=== PATIENT | male | born 1965 | race Caucasian/White ===

== ENCOUNTER → 2016-11-23 | Outpatient (CLI) | payer BC | LOC: ZCOL.LAB 08:00 | DX: Q64.33 Congenital stricture of urinary meatus (principal) ==

== ENCOUNTER 2017-05-08 11:26 | Emergency (ER) | payer BC ==
[~2017-05-08] VITALS: Ht 198.1 cm; Wt 88.6 kg
[2017-05-08 11:27] VITALS: BP 124/78; TEMP 97.6
[2017-05-08 12:30] LABS: COLLECTION METHOD CLEAN CATCH
[2017-05-08 12:33] LABS: BASO % 0.7 % (0.0-2.0); EOS # 0.2 (0.0-0.7); EOS % 2.7 % (0-4.0); GRAN # 3.5 (1.4-6.5); GRAN % 61.2 % (42.2-75.2); HEMATOCRIT 49.1 % (42.0-52.0); HEMOGLOBIN 16.9 g/dl (13.5-18.0); LYMPH # 1.6 (1.2-3.4); LYMPH % 28.8 % (20.0-51.0); MEAN CELL VOLUME 90 fl (80.0-100.0); MEAN CORPUSCULAR HEMOGLOBIN 31 pg (27.0-31.0); MEAN CORPUSCULAR HGB CONC 34 g/dl (33.0-37.0); MEAN PLATELET VOLUME 10.5 fl (7.4-10.4); MONO # 0.4 (0.1-0.6); MONO % 6.4 % (1.7-9.3); PLATELET COUNT 229 K/mm3 (130-400); RED BLOOD COUNT 5.43 M/mm3 (4.20-5.60); REDCELL DISTRIBUTION WIDTH-CV 13.5 % (11.5-14.5)
[2017-05-08 12:38] LABS: MUCOUS Present /lpf; PH 5 (5-8); SQUAMOUS EPITHELIAL 0-2 /hpf; URINE APPEARANCE Clear; URINE BACTERIA None Seen /hpf; URINE BILIRUBIN Negative (NEGATIVE); URINE BLOOD 2+ (NEGATIVE); URINE COLOR Yellow; URINE GLUCOSE Negative (NEGATIVE); URINE KETONE Trace (NEGATIVE); URINE LEUKOCYTE ESTERASE Negative (NEGATIVE); URINE NITRATE Negative (NEGATIVE); URINE PROTEIN(semi-quant) Negative (NEGATIVE); URINE UROBILINOGEN Negative (NEGATIVE)
[2017-05-08 12:44] LABS: ALANINE AMINOTRANSFERASE 24 U/L (21-72); ALBUMIN 4.4 gm/dL (3.5-5.0); ALKALINE PHOSPHATASE 45 U/L (50-136); ANION GAP 8 mmol/L (7-16); AST,SGOT 17 U/L (15-37); BILIRUBIN,TOTAL 1.2 mg/dL (0.0-1.0); BLOOD UREA NITROGEN 17 mg/dL (9-20); CALCIUM 9.4 mg/dL (8.4-10.2); CARBON DIOXIDE 27 mmol/L (22-30); CHLORIDE 105 mmol/L (98-107); CREATININE, serum 0.96 mg/dL (0.66-1.25); GLUCOSE 77 mg/dL (74-106); POTASSIUM 4.2 mmol/L (3.4-5.0); SODIUM 140 mmol/L (137-145); TOTAL PROTEIN 7.3 gm/dL (6.4-8.2)
[2017-05-08 12:55] LABS: TROPONIN-I < 0.012 ng/mL (0.000-0.034)
[2017-05-08] MEDS ORDERED: NORCO 325 MG-7.1 TAB PO (13:53)
[2017-05-08 14:13] VITALS: PULSE 57
== END 2017-05-08 14:10 | disposition home or self-care (01) ==
LOC: COL.ER 11:26
PROVIDERS: Nurse Practitioner
DX: M54.6 Pain in thoracic spine (principal); I10 Essential (primary) hypertension; E78.5 Hyperlipidemia, unspecified; F17.210 Nicotine dependence, cigarettes, uncomplicated
CPT/HCPCS: J1170

== ENCOUNTER 2019-04-26 17:36 | Emergency (ER) | payer SELFPAY ==
[~2019-04-26] VITALS: Ht 198.1 cm; Wt 99.1 kg
[~2019-04-26 17:36] MED LIST: NORCO 325 MG-7.1 TAB PO
[2019-04-26 17:53] VITALS: BP 145/89; TEMP 98.5
[2019-04-26] MEDS ORDERED: VOLTAREN 75 DR75 MG PO (20:03)
[2019-04-26 20:17] VITALS: PULSE 83
== END 2019-04-26 20:17 | disposition home or self-care (01) ==
LOC: COL.ER 17:36
DX: M72.2 Plantar fascial fibromatosis (principal)

== ENCOUNTER 2021-04-27 14:56 | Emergency (ER) | payer BC ==
[~2021-04-27] VITALS: Ht 198.1 cm; Wt 93.2 kg
[~2021-04-27 14:56] MED LIST changes: +VOLTAREN 75 DR75 MG PO
[2021-04-27 16:34] VITALS: TEMP 97.7
[2021-04-27] MEDS ORDERED: 00186-0372-20 IH (18:37)
[2021-04-27 20:13] VITALS: BP 141/97; PULSE 69
== END 2021-04-27 20:14 | disposition home or self-care (01) ==
LOC: COL.ER 14:56
DX: U07.1 COVID-19 (principal); J44.9 Chronic obstructive pulmonary disease, unspecified; F17.210 Nicotine dependence, cigarettes, uncomplicated; Z79.51 Long term (current) use of inhaled steroids
CPT/HCPCS: M0243; Q0244

== ENCOUNTER 2021-05-26 11:52 | Emergency (ER) | payer BC ==
[~2021-05-26] VITALS: Ht 198.1 cm; Wt 90.9 kg
[~2021-05-26 11:52] MED LIST changes: +00186-0372-20 IH
[2021-05-26 11:59] VITALS: TEMP 98.3
[2021-05-26 12:25] LABS: BASO % 0.5 % (0.0-2.0); EOS # 0.2 K/mm3 (0.0-0.7); GRAN # 5.3 K/mm3 (1.4-6.5); GRAN % 70.4 % (42.2-75.2); HEMATOCRIT 50.2 % (42.0-52.0); HEMOGLOBIN 17.6 g/dl (13.5-18.0); LYMPH # 1.6 K/mm3 (1.2-3.4); LYMPH % 20.8 % (20.0-51.0); MEAN CELL VOLUME 88 fl (80.0-100.0); MEAN CORPUSCULAR HEMOGLOBIN 31 pg (27-31); MEAN CORPUSCULAR HGB CONC 35 g/dl (33.0-37.0); MEAN PLATELET VOLUME 10.3 fl (7.4-10.4); MONO # 0.4 K/mm3 (0.1-0.6); MONO % 5.9 % (1.7-9.3); PLATELET COUNT 234 K/mm3 (130-400); RED BLOOD COUNT 5.68 M/mm3 (4.20-5.60); REDCELL DISTRIBUTION WIDTH-CV 13.4 % (11.5-14.5)
[2021-05-26 12:33] LABS: PROTHROMBIN TIME 11.6 SECONDS (9.7-12.8)
[2021-05-26 12:45] LABS: ALANINE AMINOTRANSFERASE 17 U/L (0-55); ALBUMIN 4.2 gm/dL (3.5-5.0); ALKALINE PHOSPHATASE 65 U/L (40-150); ANION GAP 8 mmol/L (7-16); AST,SGOT 14 U/L (5-34); BILIRUBIN,TOTAL 0.7 mg/dL (0.2-1.2); BLOOD UREA NITROGEN 14 mg/dL (8-26); CALCIUM 9.2 mg/dL (8.4-10.2); CARBON DIOXIDE 24 mmol/L (22-29); CHLORIDE 109 mmol/L (98-107); CREATININE, serum 0.92 mg/dL (0.72-1.25); GLUCOSE 96 mg/dL (70-99); POTASSIUM 3.8 mmol/L (3.5-4.5); SODIUM 141 mmol/L (136-145); TOTAL PROTEIN 7.7 gm/dL (6.2-8.1)
[2021-05-26 12:52] LABS: TROPONIN-I < 0.010 ng/mL (0.00-0.033)
[2021-05-26 15:05] VITALS: BP 142/89; PULSE 69
== END 2021-05-26 15:05 | disposition home or self-care (01) ==
LOC: COL.ER 11:52
PROVIDERS: Student in an Organized Health Care Education/Training Program
DX: R53.1 Weakness (principal); I10 Essential (primary) hypertension; J44.9 Chronic obstructive pulmonary disease, unspecified; F17.200 Nicotine dependence, unspecified, uncomplicated; Z20.822 Contact with and (suspected) exposure to COVID-19
CPT/HCPCS: J7030; Q9967

== ENCOUNTER 2021-08-29 11:10 | Emergency (ER) | payer SELFPAY ==
[~2021-08-29] VITALS: Ht 193 cm; Wt 93.2 kg
[2021-08-29 11:12] VITALS: TEMP 98.8
[2021-08-29] MEDS ORDERED: NORCO 325 MG-51 TAB PO (12:05)
[2021-08-29] MEDS ORDERED: FLEXERIL 1010 MG/TAB PO (12:24)
[2021-08-29] MEDS ORDERED: MEDROL 4MG DOSPA4 MG PO (12:25)
[2021-08-29] MEDS ORDERED: PERCOCET 325 MG1 TA2 PO (12:40)
[2021-08-29 13:40] VITALS: BP 147/98; PULSE 65
== END 2021-08-29 13:41 | disposition home or self-care (01) ==
LOC: COL.ER 11:10
DX: M54.42 Lumbago with sciatica, left side (principal); Z28.310 Unvaccinated for COVID-19; X50.0XXA Overexertion from strenuous movement or load, initial encounter
CPT/HCPCS: J1885; J2270; J2360

== ENCOUNTER → 2021-09-03 | Outpatient (CLI) | payer SELFPAY ==
[~2021-09-03] MED LIST changes: +FLEXERIL 1010 MG/TAB PO; +MEDROL 4MG DOSPA4 MG PO; +NORCO 325 MG-51 TAB PO; +PERCOCET 325 MG1 TA2 PO
== END ==
LOC: COL.RAD 11:56
DX: M51.26 Other intervertebral disc displacement, lumbar region (principal); G95.20 Unspecified cord compression

== ENCOUNTER 2022-02-11 15:45 | Outpatient (RCR) | payer OTHER | END 2022-02-23 | disposition home or self-care (01) | LOC: WSPT | DX: M54.16 Radiculopathy, lumbar region (principal) ==

== ENCOUNTER 2023-08-31 09:07 | Emergency (ER) | payer OTHER ==
[~2023-08-31] VITALS: Ht 198.1 cm; Wt 104.5 kg
[~2023-08-31 09:07] MED LIST changes: +ALBUTEROL0.83 MG/ML IH; +PREDNISONE20 MG PO
[2023-08-31 09:13] VITALS: TEMP 98.5
[2023-08-31] MEDS ORDERED: TRELEGY ELLIPT1 EAC1 IH (09:18)
[2023-08-31 10:37] VITALS: BP 148/100; PULSE 74
== END 2023-08-31 11:22 | disposition home or self-care (01) ==
LOC: COL.ER 09:07
DX: S46.811A Strain of other muscles, fascia and tendons at shoulder and upper arm level, right arm, initial encounter (principal); X58.XXXA Exposure to other specified factors, initial encounter

== ENCOUNTER → 2023-09-24 | Outpatient (RCR) | payer OTHER ==
[~2023-09-24] MED LIST changes: +ASPIRIN 81M81 MG/TA2 PO; +BUSPIRONE HCL7.5 MG PO; +CIALIS10 MG PO; +LIPITOR 80MG80 MG PO; +LYRICA 50MG CAP50 MG PO; +PLAVIX 75MG TAB75 MG PO; +PRILOSEC 20MG20 MG PO; +PROAIR HFA0.09 MG/AC IH; +TRELEGY ELLIPT1 EAC1 IH; +TYLENOL 500MG500 MG PO
== END ==
LOC: WSPT
DX: M54.41 Lumbago with sciatica, right side (principal); M54.42 Lumbago with sciatica, left side; M22.2X1 Patellofemoral disorders, right knee; G89.29 Other chronic pain

== ENCOUNTER 2023-12-10 10:08 | Emergency (ER) | payer OTHER ==
[~2023-12-10] VITALS: Ht 198.1 cm; Wt 95.5 kg
[~2023-12-10 10:08] MED LIST changes: -ASPIRIN 81M81 MG/TA2 PO; -BUSPIRONE HCL7.5 MG PO; -CIALIS10 MG PO; -LIPITOR 80MG80 MG PO; -LYRICA 50MG CAP50 MG PO; -PLAVIX 75MG TAB75 MG PO; -PRILOSEC 20MG20 MG PO; -PROAIR HFA0.09 MG/AC IH; -TYLENOL 500MG500 MG PO
[2023-12-10 10:11] VITALS: TEMP 99
[2023-12-10 10:48] LABS: BASO % 0.5 % (0.0-2.0); EOS # 0.1 K/mm3 (0.0-0.7); EOS % 0.8 % (0.0-4.0); GRAN # 5.8 K/mm3 (1.4-6.5); GRAN % 70.4 % (42.2-75.2); HEMATOCRIT 46.3 % (42.0-52.0); HEMOGLOBIN 15.7 g/dl (13.5-18.0); LYMPH # 1.9 K/mm3 (1.2-3.4); LYMPH % 22.8 % (20.0-51.0); MEAN CELL VOLUME 90 fl (80.0-100.0); MEAN CORPUSCULAR HEMOGLOBIN 31 pg (27-31); MEAN CORPUSCULAR HGB CONC 34 g/dl (33.0-37.0); MEAN PLATELET VOLUME 11.2 fl (7.4-10.4); MONO # 0.4 K/mm3 (0.1-0.6); MONO % 5.3 % (1.7-9.3); PLATELET COUNT 231 K/mm3 (130-400); RED BLOOD COUNT 5.12 M/mm3 (4.20-5.60); REDCELL DISTRIBUTION WIDTH-CV 13.8 % (11.5-14.5)
[2023-12-10 11:09] LABS: ALBUMIN 3.7 g/dL (3.5-5.0); BILIRUBIN,TOTAL 0.5 mg/dL (0.2-1.2); CALCIUM 8.8 mg/dL (8.4-10.2); CREATININE, serum 0.89 mg/dL (0.72-1.25); POTASSIUM 3.4 mEq/L (3.5-4.5); TOTAL PROTEIN 6.5 g/dl (6.2-8.1)
[2023-12-10 12:22] VITALS: BP 137/95; PULSE 73
== END 2023-12-10 12:22 | disposition home or self-care (01) ==
LOC: COL.ER 10:08
PROVIDERS: Personal Emergency Response Attendant
DX: R55 Syncope and collapse (principal); R20.2 Paresthesia of skin; M54.50 Low back pain, unspecified

== ENCOUNTER 2023-12-10 20:08 | Emergency (ER) | payer OTHER ==
[~2023-12-10] VITALS: Ht 188 cm; Wt 86.4 kg
[2023-12-10 20:14] VITALS: TEMP 99
[2023-12-10 20:30] LABS: BASO % 0.3 % (0.0-2.0); EOS % 0.1 % (0.0-4.0); GRAN # 7.5 K/mm3 (1.4-6.5); GRAN % 77.8 % (42.2-75.2); HEMATOCRIT 46.9 % (42.0-52.0); HEMOGLOBIN 16.4 g/dl (13.5-18.0); LYMPH # 1.6 K/mm3 (1.2-3.4); LYMPH % 16.9 % (20.0-51.0); MEAN CELL VOLUME 88 fl (80.0-100.0); MEAN CORPUSCULAR HEMOGLOBIN 31 pg (27-31); MEAN CORPUSCULAR HGB CONC 35 g/dl (33.0-37.0); MONO # 0.4 K/mm3 (0.1-0.6); MONO % 4.6 % (1.7-9.3); PLATELET COUNT 242 K/mm3 (130-400); RED BLOOD COUNT 5.31 M/mm3 (4.20-5.60); REDCELL DISTRIBUTION WIDTH-CV 13.7 % (11.5-14.5)
[2023-12-10 20:38] LABS: INR 1.1 (0.8-3.0); PROTHROMBIN TIME 11.5 SECONDS (9.7-12.8)
[2023-12-10 20:41] LABS: PARTIAL THROMBOPLASTIN TIME 28.2 SECONDS (26.0-37.0)
[2023-12-10 20:48] LABS: ALANINE AMINOTRANSFERASE 31 U/L (0-55); ALBUMIN 3.8 g/dL (3.5-5.0); ALKALINE PHOSPHATASE 76 U/L (40-150); ANION GAP 11 mmol/L (7-16); AST,SGOT 20 U/L (5-34); BILIRUBIN,TOTAL 0.5 mg/dL (0.2-1.2); BLOOD UREA NITROGEN 16 mg/dL (8-26); C-REACTIVE PROTEIN 0.02 mg/dL (0.00-0.50); CALCIUM 9.2 mg/dL (8.4-10.2); CHLORIDE 106 mEq/L (98-107); CREATINE KINASE 55 U/L (30-200); CREATININE, serum 1.03 mg/dL (0.72-1.25); GLUCOSE 206 mg/dL (70-99); MAGNESIUM 2.1 mg/dL (1.6-2.6); POTASSIUM 4.3 mEq/L (3.5-4.5); SODIUM 138 mEq/L (136-145); TOTAL PROTEIN 7.2 g/dl (6.2-8.1)
[2023-12-10 20:58] LABS: ALCOHOL(ethanol),MEDICAL < 10 mg/dL (0-10); SALICYLATE < 5.0 mg/dL (15.0-30.0)
[2023-12-10 21:13] LABS: THYROID STIMULATING HORMONE 0.391 uIU/mL (0.350-4.940)
[2023-12-10 21:16] LABS: TROPONIN-I < 0.010 ng/mL (0.00-0.033)
[2023-12-10 22:54] LABS: COLLECTION METHOD CLEAN CATCH
[2023-12-10 22:58] LABS: URINE APPEARANCE CLEAR (CLEAR/HAZY); URINE BLOOD NEGATIVE (NEGATIVE); URINE COLOR YELLOW (YELLOW); URINE GLUCOSE 2+ (NEGATIVE); URINE KETONE TRACE (NEGATIVE); URINE NITRATE NEGATIVE (NEGATIVE); URINE PROTEIN(semi-quant) NEGATIVE (NEGATIVE); URINE UROBILINOGEN 0.2 E.U/dL (0.2-1.0)
[2023-12-10 23:08] LABS: TRICYCLIC ANTIDEPRESS URINE NEGATIVE (NEGATIVE)
[2023-12-11 04:15] VITALS: BP 164/104; PULSE 61
== END 2023-12-11 04:24 | disposition short-term general hospital (02) ==
LOC: COL.ER 20:08
PROVIDERS: Emergency Medicine
DX: R41.82 Altered mental status, unspecified (principal); M51.36 Other intervertebral disc degeneration, lumbar region

== ENCOUNTER 2023-12-15 13:45 | Inpatient (IN) | payer OTHER ==
[~2023-12-15] VITALS: Ht 193 cm; Wt 102.3 kg
[2023-12-15] MEDS ORDERED: LIPITOR 80MG80 MG PO (14:56)
[2023-12-15] MEDS ORDERED: ASPIRIN 81M81 MG/TA2 PO (14:56)
[2023-12-15] MEDS ORDERED: PLAVIX 75MG TAB75 MG PO (14:57)
[2023-12-15] MEDS ORDERED: TYLENOL 500MG500 MG PO (14:58)
[2023-12-15] MEDS ORDERED: PRILOSEC 20MG20 MG PO (14:59)
[2023-12-15] MEDS ORDERED: BUSPIRONE HCL7.5 MG PO (14:59)
[2023-12-15] MEDS ORDERED: LYRICA 50MG CAP50 MG PO (15:00)
[2023-12-15] MEDS ORDERED: CIALIS10 MG PO (15:00)
[2023-12-15] MEDS ORDERED: PROAIR HFA0.09 MG/AC IH (15:03)
[2023-12-15] MEDS ORDERED: ALBUTEROL0.83 MG/ML IH (15:03)
[2023-12-15 15:13] VITALS: BP 149/91; PULSE 80; TEMP 98.3
[2023-12-15] MEDS ORDERED: Acetaminophen 325 MG TAB PO PRN (15:15)
[2023-12-15] MEDS ORDERED: Sennosides/Docusate 8.6-50 MG TAB PO PRN (15:15)
[2023-12-15] MEDS ORDERED: Naloxone 0.4 MG/ML VIAL IV PRN (15:15)
[2023-12-15] MEDS ORDERED: Polyethylene Glycol 3350 17 GM PDS PO PRN (15:15)
[2023-12-15] MEDS ORDERED: Docusate Sodium 100 MG CAP PO PRN (15:15)
[2023-12-15] MEDS ORDERED: Albuterol 0.083% Neb Soln 2.5 MG/3 ML UD IH PRN (15:15)
[2023-12-15] MEDS ORDERED: Nicotine 21 MG DAILY PATCH TD SCH (15:30)
[2023-12-15 18:53] VITALS: BP 117/72; PULSE 74; TEMP 98.3
[2023-12-15 19:00] VITALS: BP_SYST 112
--- NOTE | 2023-12-15 19:00 | NUR ---
RECEIVED CHANGE OF SHIFT REPORT FROM DAY SHIFT NURSE.
--- NOTE | 2023-12-15 20:00 | NUR ---
DENIES CHEST PAIN/SHORTNESS OF BREATH/NAUSEA AT THIS TIME. UP WITH ASST X1 WITH GAIT BELT, GAIT STEADY. DENIES NUMBNESS/TINGLING TO EXTREMITIES. OBSERVED SOME WEAKNESS OF RUE WITH HAND TOY MECHANIC AND SOME RLE WEAKNESS WITH WALKING. NO SLURRED SPEECH OBSERVED AND FOLLOWS COMMANDS FROM STAFF. DENIES ANY NEEDS AT THIS TIME.
[2023-12-16 05:13] VITALS: BP 112/73; PULSE 71; TEMP 97.7
--- NOTE | 2023-12-16 06:21 | NUR ---
PATIENT REPORTS DID NOT SLEEP WELL LAST NIGHT, REPORTING THAT HE WAS NOT ABLE TO STAY ASLEEP DURING THE NIGHT. COMPLAINED OF RIGHT ARM PAIN THAT SUBSIDED WITH TYLENOL WITH NO ADDITIONAL COMPLAINTS OF DISCOMFORT REPORTED DURING THE NIGHT.
[2023-12-16 06:50] VITALS: BP_SYST 112
[2023-12-16] MEDS ORDERED: Omeprazole 20 MG **** subs to Pantoprazole 40 MG PO SCH (07:00)
--- NOTE | 2023-12-16 07:17 | NUR ---
CHANGE OF SHIFT REPORT GIVEN TO DAY SHIFT NURSEREHANA. EXIT ALARMS WHEN UP IN CHAIR OR IN BED. PATIENT DENIES ANY NEEDS OR CONCERNS THIS MORNING PRIOR TO SHIFT CHANGE.
--- NOTE | 2023-12-16 08:00 | NUR ---
Pt doing okay this morning. He states that he did not have a good night. He was not able to get any sleep and was up to the restroom a lot. Pt reports he feels it was something he ate. He also states that his right arm was aching through the night and he kept having to move it for comfort. Pt did eat part of his breakfast, but educated trying a bland diet for today. Discussed pt with Dr Carlos regarding bringing in food from home and the diet he has ordered. Pt stand by assist to the restroom
[2023-12-16] MEDS ORDERED: Clopidogrel 75 MG TAB PO SCH (09:00)
[2023-12-16] MEDS ORDERED: Atorvastatin 80 MG TAB PO SCH (09:00)
[2023-12-16] MEDS ORDERED: busPIRone 7.5 MG TABLET PO SCH (09:00)
[2023-12-16] MEDS ORDERED: Patient's Own Medication Item IH SCH (09:00)
--- NOTE | 2023-12-16 13:00 | NUR ---
Pt doing well, no complaints at this time. Participating with therapy with no issues. Pt hoping to have general diet. Educated on diet this morning and discussed with him and his regarding outside food. Hat placed in toilet for stool specimen next time he goes, informed pt of this. No other needs
--- NOTE | 2023-12-16 15:58 | NUR ---
harvest worker was informed by Gayla Julian that pt had an insurance question. MARY spoke with Sherri Maldonado who expresses pt has auth through insurance. SW met with pt to follow up on insurance questions and complete intake. He reports that someone from his insurance "[employer]" called him and he is not sure what they need. SW provided her number for pt's insurance rep if they have questions. Pt confirms he lives with his , Maryann [phone] who was present, in [place]. He sees Dr. Louis for PCP needs and obtains medications from [facility]'s with some issues. reports pt's Trelogy is expensive, but she calls and gets it taken care of for free. SW advised talking to his PCP about coupons/samples to assist him. He reports to be independent with ADLS and uses a cane for DME. He has no stairs at home and typically drives himself, but his reports she can now. He does not have a DPOA-HC and is agreeable to his being NOK. He has no further concerns for MARY. MARY discussed IPR steps and team meetings with family meetings on . He verbalized understanding of the plan for IPR. Discharge Plan: re-eval
[2023-12-16 17:52] VITALS: BP 120/73; PULSE 82; TEMP 981
--- NOTE | 2023-12-16 18:05 | NUR ---
Pt has done well today, no issues with therapy. Has slight complaint of headache at this time, PRN tylenol given. Pt has ordered dinner which he is waiting on. No loose stools since early this am
[2023-12-16 19:00] VITALS: BP_SYST 120
--- NOTE | 2023-12-16 19:34 | NUR ---
PATIENT LAYING IN BED, ALERT AND ORIENTED, VSS, NO ACUTE EVENTS.
[2023-12-17 05:26] VITALS: BP 113/71; PULSE 85; TEMP 98.2
[2023-12-17 08:52] VITALS: BP_SYST 113
--- NOTE | 2023-12-17 09:10 | NUR ---
PT SITTING IN BED THIS MORNING EATING BREAKFAST. CONTACT PRECAUTIONS PUT IN PLACE. ASSESSMENT COMPLETED EARLIER THIS MORNING. MEDICATIONS ADMINISTERED PER EMAR. PT HAS NO COMPLAINTS AT THIS TIME. CALL LIGHT IS WITHIN REACH. ALL OTHER NEEDS MET.
[2023-12-17] MEDS ORDERED: Melatonin 3 MG TAB PO PRN (13:00)
[2023-12-17 17:32] VITALS: BP 128/78; PULSE 89; TEMP 97.9
[2023-12-17 19:00] VITALS: BP_SYST 128
--- NOTE | 2023-12-17 19:45 | NUR ---
Pt. , Maryann, inquired about pt's recent progress. This nurse addressed all questions.
--- NOTE | 2023-12-17 20:00 | NUR ---
During bedside shift report pt. requested tylenol before bed. Pt. states pain is 4/10, but considers this mostly managable. PRN tylenol administered per JUN. Shift assessment complete. No outstanding findings at this time. Pt. denies complaints or request. Pt's at bedside. Call light in reach.
[2023-12-18 05:09] VITALS: BP 127/75; PULSE 75; TEMP 98.2
[2023-12-18 05:14] VITALS: BP 121/78; PULSE 91; TEMP 98.1
--- NOTE | 2023-12-18 05:29 | NUR ---
Pt. had uneventful night. C/o pain at the beginning of shift. Pain subsided w/ tylenol. No complaints or request through the remainder of the night. VSS. Pt. resting in bed w/ eyes closed; respirations even and unlabored. Call light in reach.
[2023-12-18 07:00] VITALS: BP_SYST 121
--- NOTE | 2023-12-18 07:30 | NUR ---
PT A&O X4. C/O HEADACHE AND PRN TYLENOL GIVEN. NO C/O N/V. PATIENT EATING BREAKFAST CURRENTLY. SHIFT ASSESSMENT COMPLETE AND MORNING MEDICATIONS ADMINISTERED. PATIENT IS SBA WITH GAIT BELT. NO FURTHER NEEDS AT THIS TIME. CALL LIGHT WITHIN REACH.
[2023-12-18 16:34] VITALS: BP 125/77; PULSE 79; TEMP 98.6
[2023-12-18 19:00] VITALS: BP_SYST 125
--- NOTE | 2023-12-18 20:00 | NUR ---
Shift assessment complete. All findings WNL. Pt. denies pain at this time. Pt. requesting melatonin before bed, will call when ready. Pt. resting in bed w/ call light in reach. No further request.
[2023-12-18 20:49] VITALS: BP 136/88
--- NOTE | 2023-12-18 21:00 | NUR ---
Pt. requested tylenol- c/o headache rated 3/10. Assessed BP before administering med per orders. BP is 136/88 at this time.
[2023-12-19 05:26] VITALS: BP 123/76; PULSE 83; TEMP 97.8
--- NOTE | 2023-12-19 06:14 | NUR ---
Pt. had uneventful night. Rested in bed w/ eyes closed on and off through the night. Scheduled meds administered per JUN. Pt denies request or complaints this morning. Call light in reach.
[2023-12-19 07:00] VITALS: BP_SYST 123
--- NOTE | 2023-12-19 08:30 | NUR ---
Pt A&Ox4. No c/o pain or n/v. Nicotine patch to UYEN. Patient transfers with SBA with GB. Pt eating breakfast. Shift assessment complete and medications administered. No further needs at this time. Call light within reach.
[2023-12-19 17:50] VITALS: BP 129/86; PULSE 91; TEMP 98.3
[2023-12-19 19:34] VITALS: BP_SYST 129
--- NOTE | 2023-12-19 19:35 | NUR ---
RECEIVED CHANGE OF SHIFT REPORT FROM DAY SHIFT NURSE. PATIENT RESTING IN BED, EXIT ALARM ON, CALL LIGHT WITH IN PATIENT'S REACH. DENIES ANY NEEDS AT TIME OF REPORT.
--- NOTE | 2023-12-19 20:00 | NUR ---
REPORTS RUPESH EXTREMITIES EQUAL IN SENSATION TO TACTILE TOUCH. DENIES CHEST PAIN/SHORTNESS OF BREATH/NAUSEA CURRENTLY. EXIT ALARM ON WITH CALL LIGHT WITHIN PATIENT'S REACH.
--- NOTE | 2023-12-19 22:09 | NUR ---
REQUESTED ND GIVEN SLEEPING MED, SEE MAR. DENIES ANY OTHER NEEDS AT THIS TIME.
--- NOTE | 2023-12-19 23:50 | NUR ---
PATIENT RESTING IN BED WITH EYES CLOSED, DID NOT WAKE DURING NURSE ROUNDING. EXIT ALARM ON, CALL LIGHT WITHIN PATIENT'S REACH.
[2023-12-20 05:33] VITALS: BP 128/75; PULSE 77; TEMP 97.6
[2023-12-20 07:00] VITALS: BP_SYST 128
--- NOTE | 2023-12-20 07:06 | NUR ---
CHANGE OF SHIFT REPORT GIVEN TO DAY SHIFT NURSEREHANA.
--- NOTE | 2023-12-20 08:30 | NUR ---
Pt doing well this morning. Slight complaints of headache, PRN tylenol given. Pt aware of his therapy schedule. No other needs, will continue to monitor
--- NOTE | 2023-12-20 09:20 | NUR ---
MARY received a missed call from [employer] [phone] requesting a fax number for pt's FMLA paperwork. MARY called back and provided CM fax number and advised that MARY Padron is the social media analyst on pt.
--- NOTE | 2023-12-20 14:01 | NUR ---
The Interdisciplinary team discussed making the patient Independent in his room during Rehab Huddle. His current Mascorro Fall Score is high at 45 but his Tinetti score is low at 28. He is currently not using any device for mobility & self care & demonstrates good safety. The team feels he is capable of being Independent in his room at this time as he is aware of his deficits/limitations & cognitively able to problem solve his situations.--Felicia Thomas, PD
--- NOTE | 2023-12-20 14:51 | NUR ---
Pt resting in bed, lights off per his request. Pt denies any needs at this time. No issues with therapy today. Pt does a lot of snacking instead of eating regular meals. He has a variety of snacks in his room. Call light within reach, will continue to monitor
--- NOTE | 2023-12-20 15:40 | NUR ---
Admission QIM scores were reviewed by the team. Code of 88 chosen for shower/bathe self was determined by team discussion to be the most usual performance before interventions for this patient during the assessment period. Code of 4 chosen for upper body dressing was determined by team discussion to be the most usual performance before interventions for this patient during the assessment period. Code of 4 chosen for lower body dressing was determined by team discussion to be the most usual performance before interventions for this patient during the assessment period. Code of 4 chosen for putting on/taking off footwear was determined by team discussion to be the most usual performance before interventions for this patient during the assessment period. Code of 6 chosen for sit to lying was determined by team discussion to be the most usual performance before interventions for this patient during the assessment period. Code of 6 chosen for lying to sitting side of bed was determined by team discussion to be the most usual performance before interventions for this patient during the assessment period. Code of 6 chosen for sit to stand was determined by team discussion to be the most usual performance for this patient during the discharge assessment period. Code of 6 chosen for chair to bed was determined by team discussion to be the most usual performance for this patient during the discharge assessment period. Code of 6 chosen for walking 10 feet was determined by team discussion to be the most usual performance for this patient during the discharge assessment period. Code of 4 chosen for walking 50 feet w/ 2 turns was determined by team discussion to be the most usual performance before interventions for this patient during the discharge assessment period. Code of 4 chosen for walking 150 feet was determined by team discussion to be the most usual performance before interventions for this patient during the assessment period.--Felicia Thomas,
--- NOTE | 2023-12-20 17:07 | NUR ---
ironworker wire fence erector was notified patient could discharge on Wednesday. SW contacted patient's , Maryann, and explained patient may be ready for discharge on Wednesday and scheduled a family meeting for Wednesday at 1015. SW met with patient and notified him of the above information. Patient was excited and would like outpatient PT and OT (if needed) at [facility] on [address]. Discharge plan: Home with outpatient PT
[2023-12-20 17:39] VITALS: BP 133/88; PULSE 85; TEMP 98.1
[2023-12-20 19:39] VITALS: BP_SYST 133
--- NOTE | 2023-12-20 22:43 | NUR ---
PT SITTING IN BED. NO COMPLAINTS AT THIS TIME. PT WENT TO BATHROOM BEFORE BED. A/OX4. CALL LIGHT IS WITHIN REACH. ASSESSMENT COMPLETED EARLIER.
--- NOTE | 2023-12-21 00:55 | NUR ---
THE NIGHT HAS BEEN UNEVENTFUL. PT TOILETED BEFORE GOING TO BED. UPON CHECKING ON HIM, HE HAS NO COMPLAINTS AT THIS TIME. HIS BED IS IN THE LOWEST POSITION WITH BED ALARMS ON. CALL LIGHT IS WITHIN REACH.
[2023-12-21 05:31] VITALS: BP 129/84; PULSE 76; TEMP 97.7
--- NOTE | 2023-12-21 06:34 | NUR ---
ALL MEDS ADMINISTERED. CALL LIGHT IS WITHIN REACH. NO CONCERNS AT THIS TIME.
[2023-12-21 07:04] VITALS: BP_SYST 129
--- NOTE | 2023-12-21 08:00 | NUR ---
Pt doing well today, no complaints of pain. Initially pt stated that he did not want any breakfast. Breakfast tray did arrive and he did end up eating part of it. Pt continues to snack a lot throughout the day. No needs at this time
--- NOTE | 2023-12-21 12:00 | NUR ---
Pt continues to do well. Ready to go home tomorrow. Pt reported that the physician stated that he could get up in his room without calling for assistance. Pt denies any needs at this time, will continue to monitor
[2023-12-21 18:03] VITALS: BP 132/90; PULSE 83; TEMP 98.1
[2023-12-21 19:35] VITALS: BP_SYST 132
--- NOTE | 2023-12-21 19:36 | NUR ---
RECEIVED CHANGE OF SHIFT REPORT FROM DAY SHIFT NURSE.
[2023-12-22 06:38] VITALS: BP 121/79; PULSE 89; TEMP 97.6
--- NOTE | 2023-12-22 07:28 | NUR ---
CHANGE OF SHIFT REPORT GIVEN TO DAY SHIFT NURSEADINA
--- NOTE | 2023-12-22 07:38 | NUR ---
PATIENT UP IN ROOM INDEPENDENTLY DURING THE SHIFT WITH NO REPORTED PROBLEMS OR CONCERNS.
[2023-12-22 07:57] VITALS: BP_SYST 121
--- NOTE | 2023-12-22 10:07 | NUR ---
PATIENT ALERT AND ORIENTED X4. VSS. PATIENT HERE FOR RAHAB S/P CVA. PATIENT DENIES ANY PAIN AT THIS TIME. AM MEDS ADMINISTERED. PATIENT RESTING IN BED. CALL LIGHT IN REACH.
[2023-12-22] MEDS ORDERED: PLAVIX 75MG TAB75 MG PO (10:28)
[2023-12-22] MEDS ORDERED: NICODERM C21 MG/PATC TD (10:28)
[2023-12-22] MEDS ORDERED: LIPITOR 80MG80 MG PO (10:31)
[2023-12-22] MEDS ORDERED: ASPIRIN 81M81 MG/TA2 PO (10:31)
--- NOTE | 2023-12-22 11:51 | NUR ---
DISCHARGE INSTRUCTIONS PROVIDED. PATIENT EDUCATION GIVEN. MEDICATIONS REVIEWED. FOLLOW UP APPOINTMENTS DISCUSSED. PATIENT AND DENY ANY QUESTIONS OR CONCERNS. PATIENT ESCORTED OUT VIA WHEELCHAIR.
--- NOTE | 2023-12-22 18:14 | NUR ---
forensic social worker attended IPR team conference. Patient is scheduled for discharge today with outpatient PT and ST. ST at [facility], PT at [facility]. SW attended the family meeting. Patient is ready to go home with outpatient PT and ST. SW faxed discharge orders and referral to [facility] for ST and PT. MARY left a voicemail at [facility] to call patient for appointment. Discharge plan: Home with outpatient PT and ST
== END 2023-12-22 11:52 | disposition home or self-care (01) | DRG 57 ==
PROVIDERS: ADMIT Physical Medicine & Rehabilitation Sports Medicine
DX: I69.351 Hemiplegia and hemiparesis following cerebral infarction affecting right dominant side (principal); I69.322 Dysarthria following cerebral infarction; M54.2 Cervicalgia; R13.10 Dysphagia, unspecified; I69.391 Dysphagia following cerebral infarction; J44.9 Chronic obstructive pulmonary disease, unspecified; F41.9 Anxiety disorder, unspecified; F32.A Depression, unspecified; G47.33 Obstructive sleep apnea (adult) (pediatric); G89.29 Other chronic pain; M54.50 Low back pain, unspecified; Z79.52 Long term (current) use of systemic steroids; Z74.09 Other reduced mobility; R26.89 Other abnormalities of gait and mobility; Z79.899 Other long term (current) drug therapy; Z72.0 Tobacco use; R19.7 Diarrhea, unspecified; M25.519 Pain in unspecified shoulder
CPT/HCPCS: J1650

== ENCOUNTER → 2024-01-24 | Outpatient (RCR) | payer OTHER ==
[~2024-01-24] MED LIST changes: +ASPIRIN 81M81 MG/TA2 PO; +BUSPIRONE HCL7.5 MG PO; +CIALIS10 MG PO; +LIPITOR 80MG80 MG PO; +LYRICA 50MG CAP50 MG PO; +NICODERM C21 MG/PATC TD; +PLAVIX 75MG TAB75 MG PO; +PRILOSEC 20MG20 MG PO; +PROAIR HFA0.09 MG/AC IH; +TYLENOL 500MG500 MG PO
== END | disposition home or self-care (01) ==
LOC: WSST
DX: I69.398 Other sequelae of cerebral infarction (principal); R48.9 Unspecified symbolic dysfunctions